=== PATIENT | male | born 2005 | race Two or more races ===

== ENCOUNTER 2025-10-12 15:02 | Inpatient (IN) | payer MEDICAID ==
[~2025-10-12] VITALS: Ht 177.8 cm; Wt 57.9 kg
--- NOTE | 2025-10-12 16:01 | ED.PDOC ---
History of Present Illness HPI Comments This is a 24-year old male with no significant past medical history who presented to the ED with the chief complaint of right flank pain. The patient mentioned he started having right flank pain 2 days back, which is constant, cramping type, rates as 8/10 in intensity, radiating to the groin region. It was associated with chills and nausea, but no fevers or vomiting. He also mentions feeling fatigued. He denies any urinary symptoms. He has had a significant unintentional weight loss of around 22lbs in the last 1 month despite eating well. Chief Complaint: Flank Pain Time Seen by MD: 15:45 Allergies: Coded Allergies: NO KNOWN ALLERGIES (Unverified , 10/12/25) Information Source: Patient Mode of Arrival: Ambulatory Severity: Moderate Timing: Days Duration: Since onset Prehospital treatment: None Past Medical History PAST MEDICAL HISTORY: Denies Surgical History: Denies all surgeries Family History Family History: Reviewed,noncontributory to illness Social History Smoker: Non-Smoker Alcohol: Rarely Drugs: Marijuana Lives In: Home Constitutional: reports: chills, fatigue, malaise; denies: diaphoresis, fever, sweats, weakness, others EENTM: denies: blurred vision, double vision, ear bleeding, ear discharge, ear drainage, ear pain, ear ringing, eye pain, eye redness, hearing loss, mouth pain, mouth swelling, nasal discharge, nose bleeding, nose congestion, nose pain, photophobia, tearing, throat pain, throat swelling, voice changes, others Respiratory: denies: cough, hemoptysis, orthopnea, SOB at rest, shortness of breath, SOB with excertion, stridor, wheezing, others Cardiovascular: denies: chest pain, dizzy spells, diaphoresis, Dyspnea on exertion, edema, irregular heart beat, left arm pain, lightheadedness, palpitations, PND, syncope, others Gastrointestinal: denies: abdomen distended, abdominal pain, blood streaked bowels, constipated, diarrhea, dysphagia, difficulty swallowing, hematemesis, melena, nausea, poor appetite, poor fluid intake, rectal bleeding, rectal pain, vomiting, others Genitourinary: reports: flank pain; denies: burning, dysuria, frequency, hematuria, incontinence, penile discharge, penile sore, pain, testicle pain, testicle swelling, urgency, others Neurological: denies: dizziness, fainting, headache, left sided numbness, left sided weakness, numbness, paresthesia, pre-existing deficit, right sided numbnes s, right sided weakness, seizure, speech problems, tingling, tremors, weakness, others Musculoskeletal: denies: back pain, gout, joint pain, joint swelling, muscle pain, muscle stiffness, neck pain, others Integumetry: denies: bruises, change in color, change in hair/nails, dryness, laceration, lesions, lumps, rash, wounds, others Allergic/Immunocompromised: denies: Difficulty Healing, Frequent Infections, Hives, Itching, others Hematologic/Lymphatic: denies: anemia, blood clots, easy bleeding, easy bruising, swollen glands, others Endocrine: denies: excessive hunger, excessive sweating, excessive thirst, excessive urination, flushing, intolerance to cold, intolerance to heat, unexplained weight gain, unexplained weight loss, others Psychiatric: denies: anxiety, bipolar disorder, depression, hopeless, panic disorder, schizophrenia, sleepless, suicidal, others Physical Exam General Appearance: Thin HEENT: Normal ENT Inspection Neck: Non-Tender, Normal, Normal Inspection Respiratory: Lungs Clear, No Respiratory Distress, Normal Breath Sounds Cardiovascular: No Edema, No Murmur, Normal Peripheral Pulses, Regular Rate/Rhythm Breast Exam: Normal Gastrointestinal: Normal Bowel Sounds, Tenderness, Other (right flank, right CV A tenderness) Genitalia: Deferred Pelvic: Normal Adnexa Rectal: Deferred Extremities: Normal capillary refill, Normal inspection, Normal range of motion, Non-tender, No pedal edema Neurologic: Alert, No Motor Deficits, Normal Affect, Normal Mood, No Sensory Deficits Cerebellar Function: Normal Reflexes: Normal Skin: Normal Color Lymphatic: No Adenopathy Was a procedure done? Was a procedure done?: No Differential Dx Considerations may include: kidney stones, UTI, ? Intra abdominal malignancy X-Ray, Labs, Meds, VS Vital Signs Date Time Temp Pulse Resp B/P (MAP) Pulse Ox O2 Delivery O2 Flow Rate FiO2 10/12/25 15:10 98.2 87 18 142/86 99 98.2 Time of 1ST Reevaluation: 16:00 Reevaluation 1ST: Unchanged Patient Education/Counseling: Diagnosis, Treatment, Prognosis Family Education/Counseling: Diagnosis, Treatment, Prognosis SEPSIS Sepsis Screen Date sepsis recognized/suspect: Oct 12, 2025 Time Sepsis recognized/suspect: 151 Recent Procedure: No On Antibiotic Therapy: No Respiratory Rate >20: No Heart Rate >90: No Temp<36 C (96.8 F) or >38.3 C: No SBP <90 or MAP <65 mmHG: No New Acute Mental Status Change: No Is the patient on CPAP, BIPAP,: No Physician Orders Urinalysis (10/12/25 15:06) Complete Blood Count (10/12/25 15:45) Basic Metabolic Panel (10/12/25 15:45) Drug Screen (10/12/25 15:45) Ct Ab Pel Wo Con-No Oral Or Iv (10/12/25 15:46) Vital Signs Date Time Temp Pulse Resp B/P (MAP) Pulse Ox O2 Delivery O2 Flow Rate FiO2 10/12/25 15:10 98.2 87 18 142/86 99 98.2 Departure 1 Departure Time of Disposition: 16:00 Impression: Primary Impression: Nephrolithiasis Additional Impression: UTI (urinary tract infection) Disposition: 30 STILL A PATIENT Condition: Fair Critical Care Note Critical Care Time?: No Stability Stability form required: FRANCISCO Randolph RESIDENT Oct 12, 2025 16:01
[2025-10-12 16:13] LABS: Hematocrit 44.7 % (41.0-53.0); Hemoglobin 15.3 g/dL (13.5-17.5); Mean Corpuscular Hemoglobin 29.4 pg (28.0-32.0); Mean Corpuscular Volume 85.8 fL (80.0-100.0); Nucleated Red Blood Cells % 0.0 %
[2025-10-12 16:21] LABS: Chloride 105 mmol/L (98-107); Potassium 3.8 mmol/L (3.5-5.1); Sodium 140 mmol/L (136-145)
[2025-10-12 16:22] LABS: Anion Gap 9 (5-15); Carbon Dioxide 26 mmol/L (20-31)
[2025-10-12 16:23] LABS: Calcium 9.8 mg/dL (8.7-10.4)
[2025-10-12 16:27] LABS: BUN/Creatinine Ratio 7.8 (10.0-20.0); Glucose 92 mg/dL (74-106)
--- NOTE | 2025-10-12 16:29 | DVH ---
EXAM: CT CT AB PEL WO CON-NO ORAL OR IV History: kidney stones Comparison Study: None TECHNIQUE: Multidetector CT of the abdomen and pelvis without IV contrast. Axial, coronal and sagittal multiplanar reformats were obtained from the axial data set by the technologist. Radiation Dose Information: CT Dose: CTDI volume is 5.07 mGy. Dose-length product is 239.71 mGy*cm FINDINGS: The lung bases are clear. Partially visualized heart is unremarkable. Liver, spleen, gallbladder, pancreas and adrenal glands unremarkable. Punctate nonobstructing bilateral renal calculi. 2 x 2 mm obstructing calculus over the right proximal ureter causing mild right-sided hydronephrosis. The urinary bladder is unremarkable. Prostate measures 3.1 x 4.2 x 3.3 cm. Stomach is unremarkable. Small bowel loops are unremarkable. Appendix is not definitely visualized. Without visualization of the Appendix, can not exclude acute appendicitis. Moderate amount of fecal material within the ascending and transverse colons. Small amount of fecal material within the remainder of the colon. Rectal wall thickening. No evidence of intraperitoneal free air or free fluid. Mild mesenteric edema. No evidence of aortic aneurysm. No significant lymphadenopathy. Minimal body wall edema. No evidence of acute osseous abnormalities. Sclerotic foci over the left pelvic bone right acetabulum which may represent small bone islands. IMPRESSION: 2 x 2 mm obstructing calculus over the right proximal ureter causing mild right- sided hydronephrosis. Rectal wall thickening which is most likely from inadequate distention with proctitis not excluded.
[2025-10-12 16:30] LABS: Blood Urea Nitrogen 8 mg/dL (9-23)
[2025-10-12 17:00] LABS: Urine Protein, UAD Negative (Negative)
[2025-10-12 17:12] LABS: Amphetamine Screen, Urine Neg (NEGATIVE); Barbiturate Scree,Urine Neg (NEGATIVE); Benzodiazephine Screen, Urine Neg (NEGATIVE); Cannabinoid Screen, Urine Pos (NEGATIVE); Cocaine Screen, Urine Neg (NEGATIVE); Opiate Scree,Urine Neg (NEGATIVE); Phencyclidine Screen, Urine Neg (NEGATIVE)
--- NOTE | 2025-10-12 18:05 | ECG ---
[facility] Test Date: 2025-10-12 Test Time: 17:37:32 Pat Name: JAMES NAGY Department: ED Room: 0298 Gender: M Otolaryngology Surgeon: DERECK : 2005 Requested By: EMIL DOMINGUEZ Order Number: [id number] Reading MD: Alex Hudson Measurements Intervals [place] Rate: 66 P: 7 CT: 120 QRS: 103 QRSD: 96 T: 59 QT: 402 QTc: 422 Interpretive Statements Unknown rhythm, irregular rate Borderline right axis deviation Electronically Signed On 10-14-2025 10:32:25 PST by Alex Hudson Please click the below link to view image of tracing.
[2025-10-12] MEDS: KETOROLAC TROMETH 30 MG/ML 1ML VIAL IV ONE (20:14)
[2025-10-12] MEDS: TAMSULOSIN HYDROCHLORIDE 0.4 MG CAP PO ONE ×2 (20:15→23:30)
[2025-10-12] MEDS: FUROSEMIDE 20 MG/2 ML VIAL IV ONE (20:15)
[2025-10-12 20:19] VITALS: PULSE 65; RESP 18; O2SAT 100
[2025-10-12] MEDS ORDERED: ONDANSETRON HCL 4 MG/2 ML VIAL IV PRN (23:30)
[2025-10-12] MEDS ORDERED: KETOROLAC TROMETH 30 MG/ML 1ML VIAL IV PRN (23:30)
[2025-10-12] MEDS: SODIUM CHLORIDE 0.9% 1,000 ML IV ONE ×2 (23:30)
[2025-10-13] VITALS (7 sets, daily range): BP systolic 99–141; BP diastolic 64–97; PULSE 61–96; RESP 16–18; TEMP 97.8–98.4; O2SAT 97–100
[2025-10-13] MEDS: ACETAMINOPHEN 325 MG TAB PO SCH (02:23)
--- NOTE | 2025-10-13 02:28 | DVHHPRES ---
History of Present Illness Resident Creating Document: NATALIE MARTÍNEZ RESIDENT History of Present Illness This is a 24-year old male with no significant past medical history who presented to the ED with the chief complaint of right flank pain. The patient mentioned he started having right flank pain 2 days back, which is constant, cramping type, rates as 8/10 in intensity, radiating to the groin region. It was associated with chills and nausea, but no fevers or vomiting. He also mentions feeling fatigued. He has had a significant unintentional weight loss of around 22lbs in the last 1 month despite eating well. Patient denies any fever, vomiting, diarrhea, dysuria, hematuria, burning sensation when peeing. PSHx: Denies Family history: reviewed, noncontributory Social history: vapes nicotine occasionally, drinks occasionally, smokes marijuana Patient seen in the lobby. Patient complains of 5/10 right flank pain, nausea, mild shortness of breath. Patient denies any vomiting, fever, chills, dysuria, hematuria. Review of Systems Constitutional: Yes: Chills, Weakness; No: Fever, Sweats, Malaise, Other Eyes: No: Pain, Vision change, Conjunctivae inflammation, Eyelid inflammation, Other, Redness ENT: No: Ear pain, Ear discharge, Nose pain, Nose discharge, Nose congestion, Mouth pain, Mouth swelling, Throat pain, Throat swelling, Other Respiratory: Shortness of breath; No: Cough, Dry, SOB with excertion, Wheezing, Hemoptysis, Pleuritic Pain, Sputum, Wheezing, Other Cardiovascular: No: Chest Pain, Palpitations, Orthopnea, Paroxysmal Noc. Dyspnea, Edema, Lt Headedness, Other Gastrointestinal: Nausea, Abdominal Pain; No: Vomiting, Diarrhea, Constipation, Melena, Hematochezia, Other Genitourinary: No Dysuria, No Frequency, No Incontinence, No Hematuria, No Retention; Other (Right flank pain) Musculoskeletal: No: other, neck pain, shoulder pain, arm pain, back pain, hand pain, leg pain, foot pain Skin: No: Rash, Lesions, Jaundice, Bruising, Other Neurological: No: Weakness, Numbness, Incoordination, Change in speech, Confusion, Seizures, Other Allergies: Coded Allergies: NO KNOWN ALLERGIES (Unverified , 10/12/25) Medications Current Medications Medications Dose Ordered Sig/Cheo Route Start Time Stop Time Status Last Admin Dose Admin Ondansetron HCl 4 mg Q4HP PRN IV 10/12/25 23:30 Acetaminophen 650 mg Q6HR PO 10/13/25 00:00 Ketorolac Tromethamine 15 mg Q6HPRN PRN IV 10/12/25 23:30 10/17/25 23:29 Famotidine 40 mg DAILY PO 10/13/25 10:00 Tamsulosin HCl 0.8 mg QPM PO 10/13/25 18:00 Exam Vital Signs Vital Signs Date Time Temp Pulse Resp B/P (MAP) Pulse Ox O2 Delivery O2 Flow Rate FiO2 10/13/25 00:48 98.4 68 16 117/71 (86) 99 98.4 10/12/25 20:19 Room Air* 0 21 Exam General: Patient alert and oriented in person, place and time. Patient following commands. HEENT: Normocephalic, atraumatic, moist mucous membranes Respiratory/pulmonary: Clear lungs bilaterally, vesicular murmurs present in almost all lung prado, no associated crackles or wheezes. Cardiovascular: Normal heart sounds S1 and S2 with no associated murmurs Abdomen: Skinny body habitus, right sided flank tenderness on palpation Extremities: There is no peripheral edema present at the lower extremities. Peripheral Pulses: 3+ Radial (R). 3+ Radial (L). 3+ Dorsalis pedis (R). 3+ Dorsalis pedis(L) Skin: No rashes or pruritus, there is no sacral edema present at this time. Neurological: Intact cranial nerves with no focal neurologic deficits Labs/Xrays Labs Test 10/12/25 16:22 10/12/25 16:03 Range/Units Urine Color Colorless Yellow Urine Clarity Clear Clear Urine pH 6.5 5.0-9.0 Urine Specific [place] 1.009 1.001-1.035 Urine Protein Negative Negative Urine Ketones Negative Negative Urine Blood 2+ H Negative /uL Urine Nitrite Negative Negative Urine Bilirubin Negative Negative Urine Urobilinogen Normal Negative mg/dL Urine Leukocyte Esterase Negative Negative /uL Urine RBC 174 0 - 3 /hpf Urine Microscopic WBC 1 0-3 /HPF Urine Squamous Epithelial Cells None seen <5 /hpf Urine Bacteria None seen None Seen /hpf Urine Glucose Normal Normal mg/dL Urine Opiates Screen Neg NEGATIVE Urine Fentanyl Screen Neg NEGATIVE Urine Barbiturates Screen Neg NEGATIVE Urine Phencyclidine Screen Neg NEGATIVE Urine Amphetamines Screen Neg NEGATIVE Urine Benzodiazepines Screen Neg NEGATIVE Urine Cocaine Screen Neg NEGATIVE Urine Cannabinoids Screen Pos NEGATIVE White Blood Count 6.1 4.4-10.8 10^3/uL Red Blood Count 5.20 4.5-5.90 10^6/uL Hemoglobin 15.3 13.5-17.5 g/dL Hematocrit 44.7 41.0-53.0 % Mean Corpuscular Volume 85.8 80.0-100.0 fL Mean Corpuscular Hemoglobin 29.4 28.0-32.0 pg Mean Corpuscular Hemoglobin Concent 34.3 32.0-36.0 g/dL Red Cell Distribution Width 13.5 11.8-14.3 % Platelet Count 298 140-450 10^3/uL Mean Platelet Volume 8.8 6.9-10.8 fL Neutrophils (%) (Auto) 64.3 37.0-80.0 % Lymphocytes (%) (Auto) 28.5 10.0-50.0 % Monocytes (%) (Auto) 5.4 0.0-12.0 % Eosinophils (%) (Auto) 1.0 0.0-7.0 % Basophils (%) (Auto) 0.8 0.0-2.0 % Neutrophils # (Auto) 3.9 1.6-8.6 10 ^3/uL Lymphocytes # (Auto) 1.7 0.4-5.4 10 ^3/uL Monocytes # (Auto) 0.3 0-1.3 10 ^3/uL Eosinophils # (Auto) 0.1 0-0.8 10 ^3/uL Basophils # (Auto) 0.1 0-0.2 10 ^3/uL Nucleated Red Blood Cells 0.0 % Sodium Level 140 136-145 mmol/L Potassium Level 3.8 3.5-5.1 mmol/L Chloride Level 105 98-107 mmol/L Carbon Dioxide Level 26 20-31 mmol/L Anion Gap 9 5-15 Blood Urea Nitrogen 8 L 9-23 mg/dL Creatinine 1.02 0.700-1.30 mg/dL Glomerular Filtration Rate Calc 105 >90 mL/min BUN/Creatinine Ratio 7.8 L 10.0-20.0 Serum Glucose 92 74-106 mg/dL Calcium Level 9.8 8.7-10.4 mg/dL SEPSIS Sepsis Screen Date sepsis recognized/suspect: Oct 12, 2025 Time Sepsis recognized/suspect: 1511 Recent Procedure: No On Antibiotic Therapy: No Respiratory Rate >20: No Heart Rate >90: No Temp<36 C (96.8 F) or >38.3 C: No SBP <90 or MAP <65 mmHG: No New Acute Mental Status Change: No Is the patient on CPAP, BIPAP,: No Physician Orders Admit (10/12/25:) Code Status (10/12/25) Vital Signs .PER UNIT PROTOCOL (10/12/25:) Review Orders With Adm.Md (10/12/25:) Notify Md Of Changes From Base (10/12/25) Advance Directive (10/12/25) Patient Condition (10/12/25:) Allergies (10/12/25:) Ondansetron Hcl (Zofran) (10/12/25:) Oxygen By Nasal Cannula (10/12/25:) Notify Md Of Changes From Base (10/12/25:30) [employer] Rec[employer] For 24 Hours (10/12/25:30) Emergency Dysrhythmia Protocol (10/12/25:) Rhythm Strips Once Every Shift (10/12/25:30) Acetaminophen Tablet (Tylenol Tablet) (10/13/25 00:00) Ketorolac Injection (Toradol Injection) (10/12/25 23:30) Famotidine Tablet (Pepcid Tablet) (10/13/25 10:00) Sodium Chloride 0.9% (10/12/25 23:30) Tamsulosin Hydrochloride (Flomax) (10/13/25 18:00) Hepatitis B Surface Antigen (10/13/25 01:08) Hepatitis C Antibody (10/13/25 01:08) Comprehensive Metabolic Panel (10/13/25 04:00) Strain All Urine (10/13/25 ) Strict I & O QSHIFT (10/13/25 02:03) Vitamin D, 25-Hydroxy (10/13/25 02:03) Vitamin B12 (10/13/25 02:03) Regular Diet (12/25/25 Breakfast) Vital Signs Date Time Temp Pulse Resp B/P (MAP) Pulse Ox O2 Delivery O2 Flow Rate FiO2 10/13/25 00:48 98.4 68 16 117/71 (86) 99 98.4 10/12/25 23:00 98.3 72 18 134/79 (97) 97 98.3 10/12/25 20:19 65 18 100 Room Air* 0 21 10/12/25 20:18 98.0 65 18 134/63 (86) 100 98.0 10/12/25 20:15 134/63 10/12/25 18:32 98.3 75 18 137/81 (99) 94 98.3 10/12/25 18:32 75 20 94 Room Air Laboratory Tests Test 10/12/25 16:03 White Blood Count 6.1 10^3/uL (4.4-10.8) Medications Medications Dose Ordered Sig/Cheo Route Start Time Stop Time Status Last Admin Dose Admin Furosemide 20 mg ONCE ONCE IV 10/12/25 16:45 10/12/25 16:54 DC 10/12/25 20:15 20 MG Ketorolac Tromethamine 15 mg ONCE ONCE IV 10/12/25 16:45 10/12/25 16:54 DC 10/12/25 20:14 15 MG Tamsulosin HCl 0.4 mg ONCE ONCE PO 10/12/25 16:45 10/12/25 16:54 DC 10/12/25 20:15 0.4 MG Tamsulosin HCl 0.8 mg ONCE ONCE PO 10/12/25 23:30 10/12/25 23:40 DC 10/12/25 23:30 0.8 MG Assessment/Plan Assessment/Plan Obstructing urethral stone Hydronephrosis Severe protein malnutrition - CT abdomen showed 2 x 2 mm obstructing calculus over the right proximal ureter causing mild right-sided hydronephrosis. Rectal wall thickening which is most likely from inadequate distention with proctitis not excluded. -kidney ultrasound , check ureteral jet - IV fluids - ketorolac -strain all urine - strict I&O - tamsulosin - Cannabis use disorder -patient counseled on cessation of cannabis for 12 minutes Goals of care addressed with the patient for more than 27 minutes: Full code status Case discussed with Dr. Espinoza, patient and nurse Plan discussed with: Patient My Orders Orders - SRIRAMA,NATALIE RESIDENT Procedure Category Date Status Time Comprehensive LAB 12/25/25 Logged Metabolic Panel 04:00 Strain All Urine ED NURSING 10/13/25 Transmitted Strict I & O SARAN 10/13/25 In Process 02:03 Vitamin D, 25-Hydroxy LAB 10/13/25 Logged 02:03 Vitamin B12 LAB 10/13/25 Logged 02:03 Regular Diet DIET 10/13/25 Transmitted Breakfast Visit Coding STANDARD RES Billing Provider: NELIDA ESPINOZA MD Date of Service if different f: Oct 12, 2025 Common Visit Codes: 73283-[id number] INP/OBS CARE (HIGH) Secondary Visit Codes: [id number]-[id number] CARE PLAN 30 MINUTES NATALIE MARTÍNEZ RESIDENT Oct 13, 2025 02:28
[2025-10-13 06:10] LABS: Hematocrit 40.8 % (41.0-53.0); Hemoglobin 13.8 g/dL (13.5-17.5); Mean Corpuscular Hemoglobin 29.2 pg (28.0-32.0); Mean Corpuscular Volume 86.0 fL (80.0-100.0); Nucleated Red Blood Cells % 0.3 %
[2025-10-13 06:30] LABS: Alanine Aminotransferase 12 U/L (7-40); Albumin 4.5 g/dL (3.2-4.8); Alkaline Phosphatase 63 U/L (46-116); Anion Gap 12 (5-15); BUN/Creatinine Ratio 8.3 (10.0-20.0); Calcium 9.3 mg/dL (8.7-10.4); Carbon Dioxide 24 mmol/L (20-31); Chloride 105 mmol/L (98-107); Glucose 93 mg/dL (74-106); Sodium 141 mmol/L (136-145); Total Protein 7.0 g/dL (5.7-8.2)
[2025-10-13 06:32] LABS: Bilirubin, Total 1.6 mg/dL (0.2-1.0); Blood Urea Nitrogen 6 mg/dL (9-23); Potassium 3.4 mmol/L (3.5-5.1)
--- NOTE | 2025-10-13 09:14 | DVH ---
CLINICAL HISTORY: stone TECHNIQUE: Complete ultrasound exam of the kidneys and bladder was performed. COMPARISON: None FINDINGS: The right kidney has normal echogenicity and measures 7.6 cm. There is no focal parenchymal abnormality or evidence for stone. There is mild hydronephrosis. The left kidney has normal echogenicity and measures 9.8 cm. There is no focal parenchymal abnormality or evidence for stone. There is no hydronephrosis. The bladder is contracted and therefore not well evaluated. IMPRESSION: Mild right hydronephrosis.
[2025-10-13 09:15] LABS: Magnesium 1.9 mg/dL (1.6-2.6)
[2025-10-13] MEDS: ERGOCALCIFEROL 50,000 UNIT(1.25MG) CAP PO SCH (10:22)
[2025-10-13] MEDS: POTASSIUM EFFERVESENT TAB 25 MEQ PO ONE (10:22)
[2025-10-13] MEDS: FAMOTIDINE 20 MG TAB PO SCH (10:22)
--- NOTE | 2025-10-13 10:54 | DVHPNRES ---
Progress Note Date Seen: Oct 13, 2025 Resident Creating Document: BLANCA POWERS RESIDENT Medical Necessity Reason Pt with a Central, PICC or Fol: No Subjective Review of Systems Mr. Drake is a 20 year old male with history, who presented to [facility] with chief complaint of right flank pain. The patient refers 2 days of right-sided flank pain described as sharp, radiating towards the front, 10/10 intensity, associated with nausea chills, without aggravating or relieving factors. He denies fever, vomiting, hematuria, dysuria, decreased appetite, generalized weakness, and palpitations. Additionally, the patient refers an unintentional 22 lb weight loss in the last 2 months, associated with fatigue, occasional joint pains, and increased appetite. On evaluation in the ED, is afebrile, normocardic, slightly hypertensive, saturating adequately on room air. Initial labs are significant for UA with microhematuria and UDS positive for cannabis. Abdominal CT shows 2 x 2 mm obstructing calculus over the right proximal ureter causing mild right sided hydronephrosis and rectal wall thickening which is most likely from inadequate distension. He was started on IV fluids, analgesics, and Flomax. He was admitted for further work up and monitoring. Prior Surgical History: Denies Allergies: Denies Family: Aunt with Stage III breast cancer Social history: Refers previous cannabis and nicotine vape use with cessation on September 27, 2025. States he lives with his family and feels safe. Denies any previous IV drug use, high risk sexual practices, or purging behavior PCP: None 10/13/2025: patient seen at bedside. Patient states he is well, pain has improved, continues to strain his urine. He is afebrile, normocardic, normotensive, saturating adequately on room air. Follow up labs are significant for mild hypokalemia, which was repleted. Renal US shows mild right hydronephrosis. We will continue with IV fluids and urine straining. Additional blood work for evaluation of weight loss has been ordered. We will continue to monitor. Review of Systems: Constitutional: Denies weight loss, fever and chills. HEENT: Denies changes in vision and hearing. Respiratory: Denies shortness of breath and cough Cardiovascular: Denies chest discomfort or palpitations GI: Denies abdominal distention, abdominal pain, diarrhea : Denies dysuria and urinary frequency. Musculoskeletal: Refers mild flank pain Skin: Denies rash and pruritus. Neurological: denies dizziness headache vision or hearing problems Objective vital signs Vital Sign Date Time Temp Pulse Resp B/P (MAP) Pulse Ox O2 Delivery O2 Flow Rate FiO2 10/13/25 08:58 98.0 96 18 127/74 (91) 98 98.0 10/13/25 00:49 Room Air* 0 21 Total Intake and Output 10/12/25 10/12/25 10/13/25 15:00 23:00 07:00 Intake Total 350 ml Output Total 0 ml Balance 350 ml medications Current Medications Medications Dose Ordered Sig/Cheo Route Start Time Stop Time Status Last Admin Dose Admin Ondansetron HCl 4 mg Q4HP PRN IV 10/12/25 23:30 Acetaminophen 650 mg Q6HR PO 10/13/25 00:00 10/13/25 02:23 650 MG Ketorolac Tromethamine 15 mg Q6HPRN PRN IV 10/12/25 23:30 10/17/25 23:29 Famotidine 40 mg DAILY PO 10/13/25 10:00 10/13/25 10:22 40 MG Tamsulosin HCl 0.8 mg QPM PO 10/13/25 18:00 Ergocalciferol 50,000 unit Q7D PO 10/13/25 09:00 10/13/25 10:22 50,000 UNIT Examination General: Patient is thin, alert and oriented in person place and time. Patient following commands HEENT: Normocephalic, atraumatic, normal reactive pupils, EOM intact, pink conjunctiva, pink moist mucous membrane Respiratory/pulmonary: Bilateral chest expansion, no pain on palpation of chest wall, clear lungs bilaterally, vesicular murmurs present in almost all lung prado, no associated crackles or wheezes. Cardiovascular: Normal RRR, normal S1 and S2, no murmurs Abdomen: Abdomen nondistended, normal bowel sounds, soft, there is no pain to palpation in any of the abdominal quadrants, no palpable masses. Extremities: No deformities, there is no peripheral edema present at the lower extremities, normal pulses Skin: No rashes or pruritus, there is no sacral edema present at this time. Neurological: Intact cranial nerves with no focal neurologic deficits laboratory and microbiology Laboratory Tests 10/13/25 05:51 Test 10/13/25 05:51 Range/Units Serum Glucose 93 74-106 mg/dL Problem List/Assessment/Plan Problem List/Assessment/Plan Assessment and Plan Acute intractable abdominal pain secondary to ureterolithiasis Mild hydronephrosis - CT A/P: 2 x 2 mm obstructing calculus over the right proximal ureter causing mild right sided hydronephrosis - Renal US: Mild right hydronephrosis - NS IV 75 cc/hr - Flomax 0.8 mg PO qPM - Toradol 15 mg IV q 6hrs PRN - Acetaminophen 650 mg PO q 6 hours - Strict Is and Os - Strain urine Severe protein caloric malnutrition - BMI 16.4 - Labs ordered: HIV, SOLANGE, ESR, CRP, TSH Hypokalemia - Replace as needed Cannabis use disorder - I have counseled the patient on the importance of complete cessation of marijuana use for over 13 minutes Nutrition: Regular DVT prophylaxis: Patient is ambulatory GI prophylaxis: Pepcid 20 mg PO daily Goals of care have been discussed with the patient for over 25 minutes Case has been discussed with Dr. Gunn Plan discussed with: Patient, Other (Nurse) My Orders My Orders Orders - BLANCA POWERS RESIDENT Procedure Category Date Status Time [place]; Direct LAB 10/13/25 Logged 09:56 Erythrocyte LAB 10/13/25 In Process Sedimentation Rate 09:56 Chest Xray 1 View XY 10/13/25 Logged 09:56 Thyroid Stimulating LAB 10/13/25 In Process Hormone 10:27 Visit Coding STANDARD RES Billing Provider: NELIDA GUNN MD Date of Service if different f: Oct 13, 2025 Common Visit Codes: [id number] INP/OBS CARE(HIGH) BLANCA POWERS RESIDENT Oct 13, 2025 10:54 NELIDA GUNN MD Oct 18, 2025 15:57
--- NOTE | 2025-10-13 13:20 | DVH ---
CHEST RADIOGRAPH Indication: SOB Technique: Single frontal view of the chest was obtained COMPARISON: None FINDINGS: Lines and Tubes: None Lungs: Increased interstital prominence. This may represent pulmonary vascular congestion and/or viral pneumonia. Pleura: No effusion. No pneumothorax. Cardiomediastinal contours: Unremarkable Bones: Unremarkable IMPRESSION: Increased interstital prominence. This may represent pulmonary vascular congestion and/or viral pneumonia.
[2025-10-13] MEDS: TAMSULOSIN HYDROCHLORIDE 0.4 MG CAP PO SCH (16:46)
[2025-10-14 00:33] VITALS: BP 110/71; PULSE 80; RESP 96; TEMP 97.5; O2SAT 96
[2025-10-14 05:00] VITALS: BP 125/78; PULSE 60; RESP 18; TEMP 97.5; O2SAT 98
[2025-10-14 08:00] VITALS: PULSE 61; O2SAT 99
[2025-10-14 09:13] VITALS: BP 109/50; PULSE 61; RESP 16; TEMP 98; O2SAT 99
[2025-10-14 10:32] LABS: Hepatitis B Surface Antigen Negative (Negative)
[2025-10-14] MEDS ORDERED: TAMS-35 PO (10:36)
[2025-10-14 10:55] LABS: Hepatitis C Antibody Negative (Negative)
[2025-10-14 11:22] LABS: Potassium 4.2 mmol/L (3.5-5.1); Sodium 143 mmol/L (136-145)
[2025-10-14 11:23] LABS: Anion Gap 9 (5-15); Calcium 10.1 mg/dL (8.7-10.4); Carbon Dioxide 26 mmol/L (20-31)
[2025-10-14 11:25] LABS: Chloride 108 mmol/L (98-107)
[2025-10-14 11:29] LABS: BUN/Creatinine Ratio 8.2 (10.0-20.0)
[2025-10-14 11:32] LABS: Blood Urea Nitrogen 6 mg/dL (9-23); Glucose 61 mg/dL (74-106)
--- NOTE | 2025-10-14 16:44 | DVHDSRES ---
Discharge Summary Date of Admission Resident Creating Document: BLANCA POWERS RESIDENT Oct 12, 2025 at 23:30 Date of Discharge: Oct 14, 2025 Admitting Diagnosis Nephrolithiaisis Wounds: No wounds Labs/Diagnostic Data: Laboratory Results Test 10/14/25 10:56 10/13/25 05:51 10/12/25 16:22 Sodium Level 143 mmol/L (136-145) Potassium Level 4.2 mmol/L (3.5-5.1) Chloride Level 108 mmol/L (98-107) Carbon Dioxide Level 26 mmol/L (20-31) Anion Gap 9 (5-15) Blood Urea Nitrogen 6 mg/dL (9-23) Creatinine 0.73 mg/dL (0.700-1.30) Glomerular Filtration Rate Calc 133 mL/min (>90) BUN/Creatinine Ratio 8.2 (10.0-20.0) Serum Glucose 61 mg/dL (74-106) Calcium Level 10.1 mg/dL (8.7-10.4) White Blood Count 5.3 10^3/uL (4.4-10.8) Red Blood Count 4.74 10^6/uL (4.5-5.90) Hemoglobin 13.8 g/dL (13.5-17.5) Hematocrit 40.8 % (41.0-53.0) Mean Corpuscular Volume 86.0 fL (80.0-100.0) Mean Corpuscular Hemoglobin 29.2 pg (28.0-32.0) Mean Corpuscular Hemoglobin Concent 33.9 g/dL (32.0-36.0) Red Cell Distribution Width 13.9 % (11.8-14.3) Platelet Count 230 10^3/uL (140-450) Mean Platelet Volume 8.9 fL (6.9-10.8) Neutrophils (%) (Auto) 42.7 % (37.0-80.0) Lymphocytes (%) (Auto) 50.1 % (10.0-50.0) Monocytes (%) (Auto) 5.9 % (0.0-12.0) Eosinophils (%) (Auto) 0.6 % (0.0-7.0) Basophils (%) (Auto) 0.7 % (0.0-2.0) Neutrophils # (Auto) 2.3 10 ^3/uL (1.6-8.6) Lymphocytes # (Auto) 2.6 10 ^3/uL (0.4-5.4) Monocytes # (Auto) 0.3 10 ^3/uL (0-1.3) Eosinophils # (Auto) 0 10 ^3/uL (0-0.8) Basophils # (Auto) 0 10 ^3/uL (0-0.2) Nucleated Red Blood Cells 0.3 % Erythrocyte Sedimentation Rate 2 mm/hr (0-20) Phosphorus Level 3.9 mg/dL (2.4-5.1) Magnesium Level 1.9 mg/dL (1.6-2.6) Total Bilirubin 1.6 mg/dL (0.2-1.0) Aspartate Amino Transferase (AST) 15 U/L (13-40) Alanine Aminotransferase (ALT) 12 U/L (7-40) Alkaline Phosphatase 63 U/L (46-116) C-Reactive Protein High Sensitivity < 0.02 mg/dL (<1.0) Total Protein 7.0 g/dL (5.7-8.2) Albumin 4.5 g/dL (3.2-4.8) Vitamin B12 Level 314 pg/mL (211-911) Vitamin D 25-Hydroxy 9.3 ng/mL (30.0-100) Thyroid Stimulating Hormone (TSH) 3.19 uIU/mL (0.55-4.78) Hepatitis B Surface Antigen Negative (Negative) Hepatitis C Antibody Negative (Negative) HIV (1&2) Antibody Negative (Negative) Urine Color Colorless (Yellow) Urine Clarity Clear (Clear) Urine pH 6.5 (5.0-9.0) Urine Specific [place] 1.009 (1.001-1.035) Urine Protein Negative (Negative) Urine Ketones Negative (Negative) Urine Blood 2+ /uL (Negative) Urine Nitrite Negative (Negative) Urine Bilirubin Negative (Negative) Urine Urobilinogen Normal mg/dL (Negative) Urine Leukocyte Esterase Negative /uL (Negative) Urine RBC 174 /hpf (0 - 3) Urine Microscopic WBC 1 /HPF (0-3) Urine Squamous Epithelial Cells None seen /hpf (<5) Urine Bacteria None seen /hpf (None Seen) Urine Glucose Normal mg/dL (Normal) Urine Opiates Screen Neg (NEGATIVE) Urine Fentanyl Screen Neg (NEGATIVE) Urine Barbiturates Screen Neg (NEGATIVE) Urine Phencyclidine Screen Neg (NEGATIVE) Urine Amphetamines Screen Neg (NEGATIVE) Urine Benzodiazepines Screen Neg (NEGATIVE) Urine Cocaine Screen Neg (NEGATIVE) Urine Cannabinoids Screen Pos (NEGATIVE) Other Laboratory Tests 10/14/25 10:56 10/13/25 05:51 Brief Hx & Hospital Course: Mr. Drake is a 20 year old male with history, who presented to [facility] with chief complaint of right flank pain. The patient refers 2 days of right-sided flank pain described as sharp, radiating towards the front, 10/10 intensity, associated with nausea chills, without aggravating or relieving factors. He denies fever, vomiting, hematuria, dysuria, decreased appetite, generalized weakness, and palpitations. Additionally, the patient refers an unintentional 22 lb weight loss in the last 2 months, associated with fatigue, occasional joint pains, and increased appetite. On evaluation in the ED, is afebrile, normocardic, slightly hypertensive, saturating adequately on room air. Initial labs are significant for UA with microhematuria and UDS positive for cannabis. Abdominal CT shows 2 x 2 mm obstructing calculus over the right proximal ureter causing mild right sided hydronephrosis and rectal wall thickening which is most likely from inadequate distension. He was started on IV fluids, analgesics, and Flomax. He was admitted for further work up and monitoring. On admission, patient stated that his pain had improved and he continued to strain his urine. His weight loss was a concern, for which labs including HIV, TSH, CRP, TIFFANIE, and ESR, were ordered, results were negative or within normal range. On evaluation today, that patient is well, states his pain has resolved, he is eating well, sleeping well, and is able to ambulate without difficulty. Follow up are within normal range. She is afebrile, normocardic, normotensive, saturating adequately on room air. He is considered stable for discharge home with Flomax. He will follow up in the discharge clinic on Friday. He will set up care with the PCP assigned to him. All medications, indications, treatment regimens, and side effects have been explained, questions and concerns have been addressed. He states he understands and agrees. Physical Exam General: Patient is thin, alert and oriented in person place and time. Patient following commands HEENT: Normocephalic, atraumatic, normal reactive pupils, EOM intact, pink conjunctiva, pink moist mucous membrane Respiratory/pulmonary: Bilateral chest expansion, no pain on palpation of chest wall, clear lungs bilaterally, vesicular murmurs present in almost all lung prado, no associated crackles or wheezes. Cardiovascular: Normal RRR, normal S1 and S2, no murmurs Abdomen: Abdomen nondistended, normal bowel sounds, soft, there is no pain to palpation in any of the abdominal quadrants, no palpable masses. Extremities: No deformities, there is no peripheral edema present at the lower extremities, normal pulses Skin: No rashes or pruritus, there is no sacral edema present at this time. Neurological: Intact cranial nerves with no focal neurologic deficits Goals of care and discharge plan discussed with the patient for over 25 minutes. Case discussed with Dr. Gunn Operations or Procedures EXAM: CT CT AB PEL WO CON-NO ORAL OR IV History: kidney stones Comparison Study: None TECHNIQUE: Multidetector CT of the abdomen and pelvis without IV contrast. Axial, coronal and sagittal multiplanar reformats were obtained from the axial data set by the technologist. Radiation Dose Information: CT Dose: CTDI volume is 5.07 mGy. Dose-length product is 239.71 mGy*cm FINDINGS: The lung bases are clear. Partially visualized heart is unremarkable. Liver, spleen, gallbladder, pancreas and adrenal glands unremarkable. Punctate nonobstructing bilateral renal calculi. 2 x 2 mm obstructing calculus over the right proximal ureter causing mild right-sided hydronephrosis. The urinary bladder is unremarkable. Prostate measures 3.1 x 4.2 x 3.3 cm. Stomach is unremarkable. Small bowel loops are unremarkable. Appendix is not definitely visualized. Without visualization of the Appendix, can not exclude acute appendicitis. Moderate amount of fecal material within the ascending and transverse colons. Small amount of fecal material within the remainder of the colon. Rectal wall thickening. No evidence of intraperitoneal free air or free fluid. Mild mesenteric edema. No evidence of aortic aneurysm. No significant lymphadenopathy. Minimal body wall edema. No evidence of acute osseous abnormalities. Sclerotic foci over the left pelvic bone right acetabulum which may represent small bone islands. IMPRESSION: 2 x 2 mm obstructing calculus over the right proximal ureter causing mild right- sided hydronephrosis. Rectal wall thickening which is most likely from inadequate distention with proctitis not excluded. CLINICAL HISTORY: stone TECHNIQUE: Complete ultrasound exam of the kidneys and bladder was performed. COMPARISON: None FINDINGS: The right kidney has normal echogenicity and measures 7.6 cm. There is no focal parenchymal abnormality or evidence for stone. There is mild hydronephrosis. The left kidney has normal echogenicity and measures 9.8 cm. There is no focal parenchymal abnormality or evidence for stone. There is no hydronephrosis. The bladder is contracted and therefore not well evaluated. IMPRESSION: Mild right hydronephrosis. CHEST RADIOGRAPH Indication: SOB Technique: Single frontal view of the chest was obtained COMPARISON: None FINDINGS: Lines and Tubes: None Lungs: Increased interstital prominence. This may represent pulmonary vascular congestion and/or viral pneumonia. Pleura: No effusion. No pneumothorax. Cardiomediastinal contours: Unremarkable Bones: Unremarkable IMPRESSION: Increased interstital prominence. This may represent pulmonary vascular congestion and/or viral pneumonia. Condition at Discharge: Stable Final Diagnosis/Problems List Acute intractable abdominal pain secondary to ureterolithiasis Mild hydronephrosis UTI ruled out Severe protein malnutrition, BMI 16.4 Hypokalemia Cannabis use disorder Discharge Disposition: Home Discharge Instruct/Medications Diet: Regular Activity: No Restrictions, As Tolerated Follow Up/Referral: Follow up with PCP Follow up in discharge clinic on Friday10/17/2025 at 8:[address] Monsivais Medications: Flomax 0.4 mg PO q AM Scheduled Tamsulosin Hcl (Flomax), 0.8 MG PO QPM Discharge Statement: "Patient was advised to return to the ER or call 911 if any headaches, dizziness, shortness of breath, chest pain, abdominal pain, bleeding, fevers, or worsening of medical condition. Patient was counseled about treatment plan, medications, possible side effects, patientverbalized understanding. All questions were answered to the best of my ability. This discharge took greater then 30 minutes in planning, reviewing documentation, counseling the patient, and discussing with other team members." ASSESSMENT ASSESSMENT Assessment Acute Intractable Abdominal Pain secondary to ureterolithiasis Visit Coding STANDARD RES Billing Provider: NELIDA GUNN MD Date of Service if different f: Oct 14, 2025 Common Visit Codes: 19621-KSP/OBS DISCH DAY >30min BLANCA POWERS RESIDENT Oct 14, 2025 16:44 NELIDA GUNN MD Oct 15, 2025 00:04
== END 2025-10-14 12:24 | disposition home or self-care (01) | DRG 465 ==
LOC: EDBD 15:02 → ER 15:02 → OVERFLOW 23:30 → WEST WING 23:56
PROVIDERS: ADMIT Student in an Organized Health Care Education/Training Program; ATTEND Student in an Organized Health Care Education/Training Program
DX: N13.2 Hydronephrosis with renal and ureteral calculous obstruction (principal); E43 Unspecified severe protein-calorie malnutrition; E87.6 Hypokalemia; Z80.3 Family history of malignant neoplasm of breast; Z68.1 Body mass index [BMI] 19.9 or less, adult; F12.90 Cannabis use, unspecified, uncomplicated
CPT/HCPCS: 36415; 71045; 74176; 76775; 80048; 80053; 80307; 81001; 82306; 82607; 83735; 84100; 84443; 85025; 85652; 86038; 86141; 86703; 86803; 87340; 93005; G0378; J1885